=== PATIENT | male | born 1985 | race Caucasian/White ===

== ENCOUNTER 2018-07-24 10:42 | Emergency (ER) | payer MEDICAID ==
[~2018-07-24] VITALS: Ht 180.3 cm; Wt 79.4 kg
[2018-07-24 10:57] VITALS: Ht 180.3 cm; Wt 79.4 kg
[2018-07-24 11:22] LABS: BASOPHIL % 0.6 % (0-2); PLATELET COUNT 237 x10^3mcL (130-400)
[2018-07-24 11:28] LABS: CALCIUM 8.5 mg/dL (8.5-10.1); CARBON DIOXIDE 30.3 mmol/L (21-32); CHLORIDE SERUM 102 mmol/L (98-107); CREATININE SERUM 0.8 mg/dL (0.7-1.3); GFR1 > 60 mL/min; GLUCOSE SERUM 103 mg/dL (74-106); POTASSIUM SERUM 3.8 mmol/L (3.5-5.1); SODIUM SERUM 137 mmol/L (136-145)
[2018-07-24 11:37] LABS: ALBUMIN 3.8 g/dL (3.4-5.0); ALKALINE PHOSPHATASE 74 U/L (46-116); ALT/SGPT 86 U/L (16-63); AST/SGOT 26 U/L (15-37); BILIRUBIN TOTAL 0.72 mg/dL (0.20-1.00); T4(THYROXINE) 7.8 ug/dL (4.7-13.3); TOTAL PROTEIN, SERUM 6.9 g/dL (6.4-8.2)
[2018-07-24 13:31] LABS: AMPHETAMINE QUAL UR NONE DETECTED (See below)
[2018-07-24 14:58] VITALS: BP 125/78
== END 2018-07-24 16:00 | disposition home or self-care (01) ==
LOC: ED 10:42
PROVIDERS: Emergency Medicine
DX: F31.9 Bipolar disorder, unspecified (principal); F20.9 Schizophrenia, unspecified; G24.01 Drug induced subacute dyskinesia; R53.1 Weakness; T50.905A Adverse effect of unspecified drugs, medicaments and biological substances, initial encounter; Y92.238 Other place in hospital as the place of occurrence of the external cause
CPT/HCPCS: 36415; G0480

== ENCOUNTER 2018-08-06 07:46 | Emergency (ER) | payer MEDICAID ==
[~2018-08-06] VITALS: Ht 180.3 cm; Wt 90.3 kg
[2018-08-06 07:54] VITALS: BP 140/88; Ht 180.3 cm; Wt 90.3 kg
== END 2018-08-06 10:55 | disposition home or self-care (01) ==
LOC: ED 07:46
DX: Z13.89 Encounter for screening for other disorder (principal); F20.9 Schizophrenia, unspecified; F17.210 Nicotine dependence, cigarettes, uncomplicated
CPT/HCPCS: 99406

== ENCOUNTER 2018-11-25 01:33 | Emergency (ER) | payer OTHER ==
[~2018-11-25] VITALS: Ht 175.3 cm; Wt 92.1 kg
[2018-11-25 01:36] VITALS: Ht 175.3 cm; Wt 92.1 kg
[2018-11-25 03:20] LABS: BASOPHIL % 0.6 % (0-2); PLATELET COUNT 205 x10^3mcL (130-400); RED CELL DISTRIBUTION WIDTH 13.7 % (11.5-14.5)
[2018-11-25 03:29] LABS: CALCIUM 8.6 mg/dL (8.5-10.1); CARBON DIOXIDE 29.9 mmol/L (21-32); CHLORIDE SERUM 107 mmol/L (98-107); CREATININE SERUM 0.8 mg/dL (0.7-1.3); GFR1 > 60 mL/min; GLUCOSE SERUM 96 mg/dL (74-106); POTASSIUM SERUM 3.7 mmol/L (3.5-5.1); SODIUM SERUM 144 mmol/L (136-145)
[2018-11-25 03:33] LABS: ALBUMIN 3.7 g/dL (3.4-5.0); ALKALINE PHOSPHATASE 70 U/L (46-116); ALT/SGPT 32 U/L (16-63); AST/SGOT 17 U/L (15-37); BILIRUBIN TOTAL 0.7 mg/dL (0.20-1.00); TOTAL PROTEIN, SERUM 6.9 g/dL (6.4-8.2)
[2018-11-25 03:54] LABS: AMPHETAMINE QUAL UR NONE DETECTED (See below)
[2018-11-25 05:06] VITALS: BP 111/70
== END 2018-11-25 05:06 | disposition home or self-care (01) ==
LOC: ED 01:33
PROVIDERS: Emergency Medicine
DX: S29.011A Strain of muscle and tendon of front wall of thorax, initial encounter (principal); F22 Delusional disorders; I10 Essential (primary) hypertension; Z88.5 Allergy status to narcotic agent; X58.XXXA Exposure to other specified factors, initial encounter; Y93.89 Activity, other specified; Y92.89 Other specified places as the place of occurrence of the external cause; Y99.8 Other external cause status
CPT/HCPCS: 36415; G0480

== ENCOUNTER 2019-04-27 12:26 | Emergency (ER) | payer OTHER ==
[~2019-04-27] VITALS: Ht 180.3 cm; Wt 88.5 kg
[2019-04-27 12:29] VITALS: Ht 180.3 cm; Wt 88.5 kg
[2019-04-27 16:07] VITALS: BP 117/72
== END 2019-04-27 16:07 | disposition home or self-care (01) ==
LOC: ED 12:26
DX: M54.5 Low back pain (principal); Z88.5 Allergy status to narcotic agent
CPT/HCPCS: J1885

== ENCOUNTER 2019-05-01 06:46 | Emergency (ER) | payer OTHER ==
[~2019-05-01] VITALS: Ht 182.9 cm; Wt 74.4 kg
[2019-05-01 06:56] VITALS: Ht 182.9 cm; Wt 74.4 kg
[2019-05-01 08:15] VITALS: BP 141/75
== END 2019-05-01 08:15 | disposition home or self-care (01) ==
LOC: ED 06:46
DX: M54.5 Low back pain (principal); R20.2 Paresthesia of skin; F15.10 Other stimulant abuse, uncomplicated; Z88.8 Allergy status to other drugs, medicaments and biological substances
CPT/HCPCS: J1885